=== PATIENT | female | born 2000 | race Hispanic/Latino ===

== ENCOUNTER → 2020-08-31 | Day surgery (SDC) | payer OTHER ==
[~2020-08-31] MED LIST: FENTANYL CITRATE/PF 100MCG/2 ML INJ ONE; MIDAZOLAM HCL 2 MG/2 ML VIAL ONE; PROPOFOL IV EMULSION 10 MG/ML 20 ML VIAL ONE; VITAMIN D3 PO
[2020-08-31 08:30] VITALS: BP 108/72
[2020-09-04 05:11] LABS: ENDOMYSIAL ANTIBODIES, IGA Negative (Negative)
== END | disposition home or self-care (01) ==
LOC: OR 06:16
PROVIDERS: ATTEND Internal Medicine Gastroenterology
DX: K20.90 Esophagitis, unspecified without bleeding (principal); K29.70 Gastritis, unspecified, without bleeding; R74.8 Abnormal levels of other serum enzymes; R10.10 Upper abdominal pain, unspecified; R19.7 Diarrhea, unspecified; K59.09 Other constipation; Z86.19 Personal history of other infectious and parasitic diseases; Z01.812 Encounter for preprocedural laboratory examination
CPT/HCPCS: 43239; 81025; 82784; 83516; 86256; J2250; J3010

== ENCOUNTER → 2020-09-05 | Outpatient (CLI) | payer OTHER ==
[~2020-09-05] MED LIST changes: -FENTANYL CITRATE/PF 100MCG/2 ML INJ ONE; -MIDAZOLAM HCL 2 MG/2 ML VIAL ONE; -PROPOFOL IV EMULSION 10 MG/ML 20 ML VIAL ONE
== END ==
LOC: US 07:41
PROVIDERS: ATTEND Internal Medicine Gastroenterology
DX: R74.8 Abnormal levels of other serum enzymes (principal); R10.10 Upper abdominal pain, unspecified
CPT/HCPCS: 76700

== ENCOUNTER → 2022-08-13 | Outpatient (CLI) | payer OTHER | LOC: US 07:59 | PROVIDERS: ATTEND Nurse Practitioner | DX: R10.10 Upper abdominal pain, unspecified (principal); R14.0 Abdominal distension (gaseous); R11.0 Nausea; K59.09 Other constipation; K21.9 Gastro-esophageal reflux disease without esophagitis | CPT/HCPCS: 76700; 76856 ==

== ENCOUNTER 2022-09-10 19:50 | Emergency (ER) | payer OTHER ==
[~2022-09-10] VITALS: Ht 162.6 cm; Wt 66.7 kg
[2022-09-10] MEDS ORDERED: ACETAMINOPHEN 1000 MG/100 ML IV STA (20:43)
[2022-09-10] MEDS ORDERED: ONDANSETRON HCL INJ 2MG/ML 2ML 2 MG/ML VIAL IV STA (20:43)
[2022-09-10] MEDS ORDERED: FAMOTIDINE 20 MG/2 ML VIAL IV STA (20:43)
[2022-09-10] MEDS ORDERED: SODIUM CHLORIDE 0.9% 1000ML 1,000 ML IV SCH (20:45)
[2022-09-10] MEDS ORDERED: SODIUM CHLORIDE FLUSH 10 ML SYR IV PRN (20:45)
[2022-09-10 20:58] LABS: BASOPHILS % 0.4 % (0.0-1.0); EOSINOPHILS # (AUTO) 0.3 (0.0-0.4); EOSINOPHILS % 4.1 % (0.0-6.0); HEMATOCRIT 38.2 % (34.2-44.1); HEMOGLOBIN 13.1 g/dL (12.0-16.0); LYMPHOCYTES # (AUTO) 2.2 (1.0-3.2); LYMPHOCYTES % 28.5 % (18.0-39.1); MEAN CORPUSCULAR HEMOGLOBIN 28.7 pg (28-32); MEAN CORPUSCULAR HGB CONC 34.3 g/dL (31-35); MEAN CORPUSCULAR VOLUME 83.8 fL (81-99); MONOCYTES # (AUTO) 0.5 (0.2-0.8); NEUTROPHILS # (AUTO) 4.6 (2.1-6.9); NEUTROPHILS % 60.7 % (38.7-80.0); PLATELET COUNT 231 x10e3/uL (140-360); RED BLOOD COUNT 4.56 x10e6/uL (3.6-5.1)
[2022-09-10 21:10] LABS: INR 1.06; PROTHROMBIN TIME 14.3 seconds (11.9-14.5)
[2022-09-10 21:11] LABS: PARTIAL THROMBOPLASTIN TIME 34.3 seconds (23.8-35.5)
[2022-09-10 21:19] LABS: ALBUMIN 4.7 g/dL (3.5-5.0); ALBUMIN/GLOBULIN RATIO 1.3 (0.8-2.0); ANION GAP 14.9 mmol/L (8-16); CALCIUM 9.5 mg/dL (8.4-10.2); CREATININE, SERUM 0.85 mg/dL (0.57-1.11); POTASSIUM 3.9 mmol/L (3.5-5.1)
[2022-09-10 21:25] LABS: CLARITY,URINE SL CLOUDY (CLEAR); COLOR,URINE ORANGE (YELLOW); KETONES,URINE NEGATIVE (NEGATIVE); LEUKOCYTE ESTERASE ,URINE NEGATIVE (NEGATIVE); NITRITE,URINE NEGATIVE (NEGATIVE); PROTEIN,URINE DIPSTICK 1+ (NEGATIVE); URINE UROBILINOGEN 0.2 mg/dL (0.2 - 1)
[2022-09-10 21:27] LABS: AMPHETAMINES SCREEN,URINE NEGATIVE (NEGATIVE); BENZODIAZEPINES SCREEN,URINE NEGATIVE (NEGATIVE); PHENCYCLIDINE SCREEN,URINE NEGATIVE (NEGATIVE)
[2022-09-10] MEDS ORDERED: IOPAMIDOL 370 MG/ML 100 ML INFUS..BTL INJ ONE (21:28)
[2022-09-10 21:33] LABS: BACTERIA,URINE FEW /HPF; EPITHELIAL CELLS,URINE FEW /LPF; RBC,URINE >50 /HPF (0-5)
[2022-09-11] MEDS ORDERED: PANTOPRAZOLE SO40 MG PO (00:08)
[2022-09-11] MEDS ORDERED: DICYCLOMINE HCL20 MG PO (00:08)
[2022-09-11] MEDS ORDERED: ONDANSETRON ODT4 MG PO (00:08)
[2022-09-11 00:45] VITALS: BP 103/67; PULSE 77; RESP 19; TEMP 98.1; O2SAT 100
== END 2022-09-11 00:48 | disposition home or self-care (01) ==
LOC: ER 19:57
DX: R10.12 Left upper quadrant pain (principal); R19.7 Diarrhea, unspecified; R11.0 Nausea; K21.9 Gastro-esophageal reflux disease without esophagitis
CPT/HCPCS: 36415; 71045; 74177; 80053; 80307; 81001; 84702; 85025; 85610; 85730; 99284; J0131; J2405; J7030; Q9967